=== PATIENT | female | born 1945 | race Caucasian/White ===

== ENCOUNTER 2018-05-02 09:48 | Emergency (ER) | payer BC, OTHER ==
[~2018-05-02] VITALS: Ht 162.6 cm; Wt 80.7 kg
[2018-05-02 10:04] VITALS: BP_SYST 152
[2018-05-02] MEDS ORDERED: ONDANSETRON 4 MG ODT TAB PO ONE (12:00)
[2018-05-02] MEDS ORDERED: ACETAMINOPHEN 325 MG TABLET PO ONE (12:00)
[2018-05-02] MEDS ORDERED: traMADol HCL HCL 50 MG TABLET (ULTRAM) PO ONE (12:00)
[2018-05-02 12:45] VITALS: BP_SYST 152
== END 2018-05-02 12:45 | disposition home or self-care (01) ==
LOC: SED 09:48
DX: M25.562 Pain in left knee (principal); Z88.0 Allergy status to penicillin; Z88.6 Allergy status to analgesic agent; X50.1XXA Overexertion from prolonged static or awkward postures, initial encounter; Y93.89 Activity, other specified; Y92.69 Other specified industrial and construction area as the place of occurrence of the external cause; Y99.8 Other external cause status
CPT/HCPCS: 73564; 99284; Q0162